=== PATIENT | female | born 1980 | race African-American/Black ===

== ENCOUNTER 2017-05-23 17:14 | Emergency (ER) | payer BC ==
[~2017-05-23] VITALS: Ht 154.9 cm; Wt 74.4 kg
[~2017-05-23 17:14] MED LIST: ACETAMINOPHEN-1 EAC1 PO; AMOXICILLIN500 M1 PO; ANTIBIOTIC; DIFLUCAN150 MG PO; NORCO 5-325 TA1 EACH PO; PENICILLIN VK500 M1 PO; PRENATAL PO
[2017-05-23] MEDS ORDERED: AUGMENTIN 875-1 EACH PO (17:50)
[2017-05-23] MEDS ORDERED: DIFLUCAN150 MG PO (18:18)
== END 2017-05-23 18:31 | disposition home or self-care (01) ==
LOC: ER 17:14
DX: H66.93 Otitis media, unspecified, bilateral (principal)

== ENCOUNTER 2019-10-31 18:37 | Emergency (ER) | payer OTHER ==
[~2019-10-31] VITALS: Ht 162.6 cm; Wt 70.8 kg
[~2019-10-31 18:37] MED LIST changes: +AUGMENTIN 875-1 EACH PO
[2019-10-31 20:02] LABS: URINE BILIRUBIN NEGATIVE (Negative); URINE BLOOD 2+ (Negative); URINE CLARITY SL CLOUDY; URINE COLOR YELLOW; URINE GLUCOSE-RANDOM* NEGATIVE (Negative); URINE KETONES NEGATIVE (Negative); URINE LEUKOCYTES-REFLEX NEGATIVE (Negative); URINE NITRITE-REFLEX NEGATIVE (Negative); URINE PROTEIN (DIPSTICK) NEGATIVE (Negative); URINE SPECIFIC GRAVITY >= 1.030 (1.005-1.035); URINE UROBILINOGEN 0.2 E.U./dl (0.2-1.0)
[2019-10-31 20:24] LABS: BACTERIA-REFLEX 1-9 Few /HPF (None Seen); CASTS None Seen /LPF (None Seen); CRYSTALS None Seen /LPF (None Seen); MUCUS >6 Heavy strn/LPF (None Seen); SQUAMOUS 4-10 Moderate /LPF (0-3); URINE WBC-REFLEX 0-5 Rare /HPF (0-5)
[2019-10-31] MEDS ORDERED: AMOXICILLIN 50500 MG PO (20:34)
[2019-10-31] MEDS ORDERED: FLAGYL500 M1 PO (20:34)
[2019-10-31] MEDS ORDERED: DIFLUCAN150 MG PO (20:34)
[2019-10-31] MEDS ORDERED: PROCTOCORT28.4 GM TOP (20:37)
[2019-10-31 20:56] VITALS: BP 127/82
== END 2019-10-31 20:59 | disposition home or self-care (01) ==
LOC: ER 18:37
PROVIDERS: Physician Assistant
DX: H66.91 Otitis media, unspecified, right ear (principal); K64.4 Residual hemorrhoidal skin tags; N76.0 Acute vaginitis; B96.89 Other specified bacterial agents as the cause of diseases classified elsewhere; K08.89 Other specified disorders of teeth and supporting structures; Z98.890 Other specified postprocedural states; Z79.2 Long term (current) use of antibiotics; Z79.899 Other long term (current) drug therapy

== ENCOUNTER 2020-06-21 16:05 | Emergency (ER) | payer OTHER ==
[~2020-06-21 16:05] MED LIST changes: +AMOXICILLIN 50500 MG PO; +FLAGYL500 M1 PO; +PROCTOCORT28.4 GM TOP
[2020-06-21 16:38] LABS: URINE BILIRUBIN NEGATIVE (Negative); URINE BLOOD NEGATIVE (Negative); URINE CLARITY CLEAR; URINE COLOR YELLOW; URINE GLUCOSE-RANDOM* NEGATIVE (Negative); URINE KETONES NEGATIVE (Negative); URINE NITRITE-REFLEX NEGATIVE (Negative); URINE PROTEIN (DIPSTICK) 1+ (Negative)
[2020-06-21 16:52] LABS: URINE LEUKOCYTES-REFLEX 2+ (Negative)
[2020-06-21 16:56] LABS: MUCUS >6 Heavy strn/LPF (None Seen); SQUAMOUS >10 Many /LPF (0-3)
[2020-06-21 17:03] LABS: CASTS None Seen /LPF (None Seen)
[2020-06-21 17:04] LABS: BACTERIA-REFLEX None Seen /HPF (None Seen); URINE RBC 0-2 Rare /HPF (0-2); URINE WBC-REFLEX >25 Many /HPF (0-5)
[2020-06-21 17:05] LABS: CRYSTALS None Seen /LPF (None Seen)
[2020-06-21] MEDS ORDERED: KEFLEX500 M1 PO (17:39)
[2020-06-21] MEDS ORDERED: METROGEL-VAGINA70 GM VAG (17:39)
== END 2020-06-21 18:30 | disposition home or self-care (01) ==
LOC: ER 16:05
PROVIDERS: Nurse Practitioner Family
DX: N39.0 Urinary tract infection, site not specified (principal); H66.91 Otitis media, unspecified, right ear; N76.0 Acute vaginitis; B96.89 Other specified bacterial agents as the cause of diseases classified elsewhere; A59.01 Trichomonal vulvovaginitis; Z79.2 Long term (current) use of antibiotics; Z79.899 Other long term (current) drug therapy

== ENCOUNTER 2020-07-05 22:22 | Emergency (ER) | payer OTHER ==
[~2020-07-05] VITALS: Ht 154.9 cm; Wt 68.0 kg
[~2020-07-05 22:22] MED LIST changes: +KEFLEX500 M1 PO; +METROGEL-VAGINA70 GM VAG
[2020-07-05] MEDS ORDERED: NOHOMEMEDICATIONS (22:34)
[2020-07-05 22:51] LABS: URINE BILIRUBIN NEGATIVE (Negative); URINE BLOOD NEGATIVE (Negative); URINE CLARITY CLEAR; URINE COLOR YELLOW; URINE GLUCOSE-RANDOM* NEGATIVE (Negative); URINE KETONES NEGATIVE (Negative); URINE LEUKOCYTES-REFLEX TRACE (Negative); URINE NITRITE-REFLEX NEGATIVE (Negative); URINE PROTEIN (DIPSTICK) NEGATIVE (Negative); URINE SPECIFIC GRAVITY 1.025 (1.005-1.035)
[2020-07-06] MEDS ORDERED: DIFLUCAN150 MG PO (00:39)
[2020-07-06 00:54] VITALS: BP 122/68
== END 2020-07-06 00:50 | disposition home or self-care (01) ==
LOC: ER 22:22
PROVIDERS: Emergency Medicine
DX: B37.3 Candidiasis of vulva and vagina (principal)

== ENCOUNTER 2020-07-28 13:16 | Emergency (ER) | payer OTHER ==
[~2020-07-28] VITALS: Ht 154.9 cm; Wt 66.7 kg
[~2020-07-28 13:16] MED LIST changes: +NOHOMEMEDICATIONS
[2020-07-28 13:24] VITALS: BP 107/69
[2020-07-28 13:32] LABS: URINE BILIRUBIN NEGATIVE (Negative); URINE BLOOD NEGATIVE (Negative); URINE CLARITY SL CLOUDY; URINE COLOR YELLOW; URINE GLUCOSE-RANDOM* NEGATIVE (Negative); URINE KETONES NEGATIVE (Negative); URINE NITRITE-REFLEX NEGATIVE (Negative); URINE PROTEIN (DIPSTICK) 1+ (Negative); URINE SPECIFIC GRAVITY >= 1.030 (1.005-1.035)
[2020-07-28 13:33] LABS: URINE LEUKOCYTES-REFLEX 2+ (Negative)
[2020-07-28 13:36] LABS: SQUAMOUS >10 Many /LPF (0-3)
[2020-07-28 13:37] LABS: BACTERIA-REFLEX >30 Many /HPF (None Seen); MUCUS >6 Heavy strn/LPF (None Seen); URINE WBC-REFLEX >25 Many /HPF (0-5)
[2020-07-28 13:38] LABS: URINE RBC 3-10 Few /HPF (0-2)
[2020-07-28 13:39] LABS: CASTS None Seen /LPF (None Seen); CRYSTALS None Seen /LPF (None Seen)
[2020-07-28] MEDS ORDERED: FLAGYL500 M1 PO (15:23)
[2020-07-28] MEDS ORDERED: DIFLUCAN150 MG PO (15:24)
== END 2020-07-28 16:06 | disposition home or self-care (01) ==
LOC: ER 13:16
PROVIDERS: Physician Assistant
DX: D28.2 Benign neoplasm of uterine tubes and ligaments (principal); A59.01 Trichomonal vulvovaginitis; R10.2 Pelvic and perineal pain; Z98.890 Other specified postprocedural states

== ENCOUNTER 2020-10-10 17:56 | Emergency (ER) | payer OTHER ==
[~2020-10-10] VITALS: Ht 170.2 cm; Wt 65.8 kg
[2020-10-10 18:47] LABS: HEMATOCRIT 26.4 % (37.0-47.0); HEMOGLOBIN 8.3 gm/dL (12.0-15.0); MCH 23.3 pg (26.0-34.0); MCHC 31.5 g/dL (28.0-37.0); MCV 73.8 fL (80.0-100.0); PLATELET COUNT 174 thou/uL (150-400); RBC 3.58 mil/uL (4.20-5.00); RDW 20.1 % (10.5-14.5); WBC 2.6 thou/uL (4.0-11.0)
[2020-10-10 18:57] LABS: CALCIUM 8.3 mg/dL (8.5-10.1)
[2020-10-10 19:34] LABS: ABSOLUTE NEUTROPHILS 1.3 thou/uL (1.4-8.2); ANISOCYTOSIS 1+; HYPOCHROMASIA 3+; MICROCYTES 3+
[2020-10-10 20:51] VITALS: BP 110/59
== END 2020-10-10 20:52 | disposition home or self-care (01) ==
LOC: ER 17:56
PROVIDERS: Emergency Medicine
DX: D64.9 Anemia, unspecified (principal); R20.2 Paresthesia of skin; Z98.890 Other specified postprocedural states